=== PATIENT | male | born 1990 | race Caucasian/White ===

== ENCOUNTER 2019-11-29 10:51 | Emergency (ER) | payer OTHER ==
[~2019-11-29] VITALS: Ht 185.4 cm; Wt 111.0 kg
[2019-11-29] MEDS ORDERED: TETANUS, DIPHTHERIA, PERTUSSIS VAC/PF 0.5ML (>7YR OLD) IM ONE (14:45)
[2019-11-29] MEDS ORDERED: LIDOCAINE HCL/PF 1% 10 MG/ML 5ML VIAL IJ ONE (14:45)
[2019-11-29] MEDS ORDERED: BACITRACIN ZINC OINT UDPKT TOP ONE (14:45)
[2019-11-29 15:30] VITALS: BP 138/79
== END 2019-11-29 16:11 | disposition home or self-care (01) ==
LOC: ER 10:51
DX: S61.211A Laceration without foreign body of left index finger without damage to nail, initial encounter (principal); W26.0XXA Contact with knife, initial encounter; Y93.89 Activity, other specified; Y92.89 Other specified places as the place of occurrence of the external cause; Y99.8 Other external cause status
CPT/HCPCS: 12001; 90471; 90715; 99283; J3490